=== PATIENT | female | born 1955 | race Caucasian/White ===

== ENCOUNTER 2017-02-11 17:06 | Inpatient (IN) | payer MEDICARE ==
[2017-02-11] VITALS (8 sets, daily range): BP systolic 109–128; BP diastolic 61–85; PULSE 102–111; RESP 17–24; O2SAT 93–96
[~2017-02-11] VITALS: Ht 152.4 cm; Wt 55.9 kg
--- NOTE | 2017-02-11 17:14 | ED.REPORT ---
HPI-Dyspnea / Wheezing Date of Service Feb 11, 2017 ED Provider: Dr. Paz Pt is a 61 y/o female w/ a hx of XXXXXX presenting to the ED via EMS . The patient was was going in for a f/u and had a syncopal episode and hit her head. She states she has been ill with a cough, SOB, and fever since January 29. Nursing Notes Stated Complaint: SYNCOPE Chief Complaint: Respiratory Complaints Nursing Notes Reviewed: Yes Allergies: Coded Allergies: NSAIDS (Non-Steroidal Anti-Inflamma (Verified Allergy, Severe, 02/11/17) General Time Seen by MD: 17:13 Hx Obtained From: Patient, EMS Arrived By: Ambulance Sudden in Onset?: No Past Medical History Ambulatory Status Independent Review of Systems Constitutional: Reports: Fever Respiratory: Reports: Non-productive cough Complete sys rev & neg: except as marked. Neurologic: Reports: Confusion Physical Exam Initial Vital Signs Vital Signs (First) Date Time Temp Pulse Resp B/P Pulse Ox O2 Delivery O2 Flow Rate FiO2 02/11/17 17:13 38.3 111 18 109/61 93 Room Air Initial VS: Reviewed Re-Eval/Medical Decision Counseled Regarding: Diagnosis, Lab results Discharge & Departure Impression: Primary Impression: Sepsis Sepsis type: sepsis due to unspecified organism Qualified Code: A41.9 - Sepsis, unspecified organism Discharge Condition All VS Reviewed: Yes Condition: Stable Referrals: Angeles Camara (PCP) Scribe Attestation Portions of this note were transcribed by Bubba Astorga. I, Dr. Paz personally performed the history, physical exam and medical decision-making; I reviewed and confirmed the accuracy of the information in the transcribed note. Signed by Mark Douglass, 02/11/17 - [id number] copies to: Angeles Camara Ben M MD Feb 11, 2017 17:13 BUBBA ASTORGA Feb 11, 2017 17:17
[2017-02-11 17:42] LABS: BASOPHILS % (AUTO) 0.3 % (0-3); EOSINOPHILS % (AUTO) 0 % (0-5); MONOCYTES % (AUTO) 4.7 % (4-12); Mean Corpuscular Hemoglobin 31.7 pg (27.0-35.0); Mean Corpuscular Volume 93.9 fL (81-100); NEUTROPHILS % (AUTO) 85.2 % (40-74); Platelet Count 235 bil/L (150-400)
--- NOTE | 2017-02-11 18:01 | DRSVH ---
PROCEDURE: X-RAY CHEST ONE VIEW, PORTABLE ([id number]) INDICATIONS: shortness of breath TECHNIQUE: One view of the chest was acquired. COMPARISON: [facility], CR, XR CHEST 2VW, 02/05/2017, 11:52. FINDINGS: Surgical changes and devices: None. Lungs and pleura: No pleural effusions or pneumothorax. Faint opacity is present overlying the right middle lobe. Mediastinum: Mediastinal contours appear normal. Heart size is normal. Bones and chest wall: No suspicious bony lesions. Overlying soft tissues appear unremarkable. IMPRESSION: Faint, small opacity is present overlying the right middle lobe. This could represent foc al atelectasis versus developing pneumonia. Dictated by: Libra Maravilla M.D. on 02/11/2017 at 17:58 Approved by: Libra Maravilla M.D. on 02/11/2017 at 17:59
--- NOTE | 2017-02-11 18:03 | ED.REPORT ---
HPI-Syncope Date of Service Feb 11, 2017 ED Provider: Chemo Richards MD Pt is a 61 year old female with a recent history of URI on 01/29/17 who presents to the ED via EMS complaining of a syncopal episode onset 2 hours ago. She c/o associated SOB and fever. She denies history of blood clot. The pt reports that she lost consciousness for less than 30 seconds. Pt states that her child recently had pneumonia and that she got sick shortly after. Nursing Notes Stated Complaint: SYNCOPE Chief Complaint: Respiratory Complaints Nursing Notes Reviewed: Yes Allergies: Coded Allergies: NSAIDS (Non-Steroidal Anti-Inflamma (Verified Allergy, Severe, 02/11/17) Scheduled Methadone (Methadone) 10 Mg Tab 20 MG PO MORNING Methadone (Methadone) 10 Mg Tab 10 MG PO HS Pregabalin (Lyrica) 75 Mg Capsule 75 MG PO BID General Time Seen by Provider: 18:03 Chief Complaint Lost consciousness Syncope Description: Single episode Hx Obtained From: Patient, EMS Arrived By: Ambulance Onset Occurred: 1 - 4 hours ago Symptom Duration: 1 - 15 minutes (<30 seconds) Severity: Current: No pain currently Severity: Maximum: No pain Recent Healthcare: Recent doctor visit Similar Sx Previous: No Past Medical History Past Medical History Anxiety Depression Fibromyalgia IBS URI Reports: GERD Past Surgical History Basal cell carcinoma Melanoma Reports: Hysterectomy Smoking History Former Smoker Social History Alcohol Use: Denies alcohol use Drug Use: Denies drug use Ambulatory Status Independent Review of Systems Constitutional: Reports: Fever Respiratory: Reports: Shortness of breath Neurologic: Reports: Change LOC, Syncope Complete sys rev & neg: except as marked. Physical Exam Initial Vital Signs Vital Signs (First) Date Time Temp Pulse Resp B/P Pulse Ox O2 Delivery O2 Flow Rate FiO2 02/11/17 17:13 38.3 111 18 109/61 93 Room Air 02/11/17 18:54 2 Initial VS: Reviewed Head / Eyes: Atraumatic, Normocephalic Neck: Supple, Full range of motion Abdomen / GI: Soft, Non-tender Upper Extremities: Vascular intact, Neuro intact Skin: Warm, Dry, No cyanosis Psychiatric: Mood/affect normal, Behavior normal General/Constitutional: Awake, Alert, Cooperative Distress / Hydration: Positive: Distress moderate Diaphoretic Respiratory / Chest: Atraumatic, Breath sounds = bilat Diminished breath sounds with wheeze Cardiovascular: Regular rhythm, Heart sounds NL Heart Rate / Rhythm: Positive: Tachycardia Lower Extremity / Pelvis / MS: Atraumatic, Full range of motion, Neurologic intact, Vascular intact Neurologic: Oriented X3, Speech NL Interpretation & Diagnostics Lab Results Interpretation Result Diagram: 02/11/17 1725 02/11/17 1725 Test 02/11/17 17:25 White Blood Count 7.7th/mm3 (3.8-10.1) Red Blood Count 3.63mil/mm3 (3.90-5.20) Hemoglobin 11.5g/dL (12.0-15.6) Hematocrit 34.1% (35.0-46.0) Mean Corpuscular Volume 93.9fL (81-100) Mean Corpuscular Hemoglobin 31.7pg (27.0-35.0) Mean Corpuscular Hemoglobin Concent 33.7% (32.0-37.0) Red Cell Distribution Width 11.8% (12.3-15.4) Platelet Count 235bil/L (150-400) Neutrophils (%) (Auto) 85.2% (40-74) Lymphocytes (%) (Auto) 9.7% (14-46) Monocytes (%) (Auto) 4.7% (4-12) Eosinophils (%) (Auto) 0% (0-5) Basophils (%) (Auto) 0.3% (0-3) Sodium Level 134mEq/L (134-144) Potassium Level 3.7mEq/L (3.5-5.2) Chloride Level 96mEq/L (97-108) Carbon Dioxide Level 24mmol/L (18-29) Blood Urea Nitrogen 12mg/dL (8-27) Creatinine 0.68mg/dL (0.57-1.00) Estimat Glomerular Filtration Rate 126mL/min (>59) Glucose Level 137mg/dL (60-99) Calcium Level 9.0mg/dL (8.5-10.1) Total Bilirubin 0.3mg/dL (0.0-1.2) Aspartate Amino Transf (AST/SGOT) 42U/L (0-50) Alanine Aminotransferase (ALT/SGPT) 26U/L (0-32) Alkaline Phosphatase 56U/L (25-165) C-Reactive Protein 11.5mg/dL (0.0-0.5) Pro-B-Type Natriuretic Peptide 918.0pg/mL (0-287) Total Protein 6.9g/dL (6.4-8.4) Albumin 3.8g/dL (3.4-5.0) Procalcitonin 0.18ng/mL (0.00-0.08) ECG Interpretation ECG Interpretation: Sinua tacycardia with a rate of 106. Normal ST segments. No evidence of IN. Time: 18:30 Interpreted by: ED physician X-Ray Chest Interpretation Chest Xray Interpretation: IMPRESSION: Faint, small opacity is present overlying the right middle lobe. This could represent focal atelectasis versus developing pneumonia. Dictated by: Libra Maravilla M.D. on 02/11/2017 at 17:58 View: Portable, 1 view Interpretation / Wet Read by: Interpret - Radiologist CT Head Interpretation IMPRESSION: 1. No acute intracranial process. Dictated by: Libra Maravilla M.D. on 02/11/2017 at 18:02 Study: Head CT no contrast Interpretation / Wet Read by: Interpret - Radiologist Re-Eval/Medical Decision Med Decision/Clinical Course 61-year-old female presents acutely ill with syncope, cough and diffuse wheeze. She is found to have bilateral pneumonia and significant bronchospasm. She was treated with broad-spectrum antibiotics, steroids and several DuoNeb nebs. After about 2 hours she looked and felt much better. She has been on oral antibiotics will therefore this is technically an antibiotic failure. She has been on a macrolide swell placed on a cephalosporin and admit her to the hospitalist service. Source of Hx: Old records Re-Evaluation/Progress : Time of Eval: 20:46 Re-Evaluation/Progress Note: Pt rechecked. Informed pt of plan for admission. Pt understands and agrees with plan for admission. All questions were answered. Consultation : Referral / Consult Name: Alfredo Samaniego MD Call Returned at: 20:51 Drilling Supervisor: Will see patient, Agrees with eval, Agrees with plan, Accepts admit Counseled Regarding: Diagnosis, Lab results, Need for admission Discharge & Departure Impression: Primary Impression: Pneumonia Pneumonia type: due to unspecified organism Laterality: unspecified laterality Lung location: unspecified part of lung Qualified Code: J18.9 - Pneumonia, unspecified organism Disposition: ADMITTED TO HOSPITAL Discharge Condition All VS Reviewed: Yes Condition: Stable Referrals: Angeles Camara (PCP) Crit Care Except Billable Proc Time Spent: 75-104 minutes Services Performed: Patient management by me, Time spent at bedside, Reviewing test results, Reviewing imaging, Discussing patient care, Documentation in record, Time with fam/surrogate Scribe Attestation Portions of this note were transcribed by Prema Jane. I, Dr. Richards personally performed the history, physical exam and medical decision-making; I reviewed and confirmed the accuracy of the information in the transcribed note. Signed by : Mark Padilla, 02/11/17 and 20:00. copies to: Angeles Camara Todd P DO Feb 11, 2017 18:03 Prema Jason Feb 11, 2017 18:15
--- NOTE | 2017-02-11 18:05 | DRSVH ---
PROCEDURE: CT BRAIN WITHOUT CONTRAST ([id number]) INDICATIONS: syncope TECHNIQUE: Noncontrast 4.5 mm thick angled axial sections acquired from the foramen magnum to the vertex, with c oronal reformats. COMPARISON: None. FINDINGS: Image quality: Excellent. CSF spaces: Basal cisterns are patent. No extra-axial fluid collections. Ventricles are normal in size and shape. Brain: No midline shift. No intracranial masses or hemorrhage. Garcia-white matter interface is norm al. Skull and face: Calvarium and visualized facial bones are intact, without suspicious lesions. Sinuses: Visualized sinuses and mastoids are clear. IMPRESSION: 1. No acute intracranial process. Dictated by: Libra Maravilla M.D. on 02/11/2017 at 18:02 Approved by: Libra Maravilla M.D. on 02/11/2017 at 18:03
[2017-02-11 18:08] LABS: TROPONIN T 0.022 ug/L (0.0-0.011)
[2017-02-11] MEDS ORDERED: Albuterol-Ipratropium 3 mL Inhalation Solution NEB ONE ×2 (18:15→18:30)
[2017-02-11] MEDS ORDERED: Albuterol 2.5 mg/3 mL Inhalation Solution NEB ONE ×2 (18:39→18:45)
[2017-02-11] MEDS ORDERED: MethylprednisoLONE Sodium Succinate 62.5 mg/mL 2 mL Inj IVPUSH ONE (18:45)
--- NOTE | 2017-02-11 20:23 | DRSVH ---
PROCEDURE: CT ANGIO CHEST PULMONARY EMBOLISM ([id number]) INDICATIONS: dyspnea, tachycardia, nonstemi TECHNIQUE: After the administration of intravenous contrast, 2 mm thick sections acquired from the pulmonary api jailyn to the posterior costophrenic angles. 3-dimensional maximum intensity projection (MIP) coronal a nd sagittal reformats were then acquired through the thorax. For radiation dose reduction, the follo wing was used: automated exposure control, adjustment of mA and/or kV according to patient size. COMPARISON: None. FINDINGS: Image quality: Excellent. Pulmonary arteries: Pulmonary arteries are normal in size, and demonstrate no intraluminal filling d efects to suggest central pulmonary embolism. Lungs and pleura: Scattered small patchy areas of opacity some groundglass like in nature within the lungs bilaterally. No pleural effusions or pneumothorax. Central and peripheral airways are patent. Mediastinum: Heart size is normal, without pericardial effusion. 14 mm aorticopulmonary window lymph node is present. Thoracic aorta is normal in caliber and enhancement. Esophagus is normal in calibe r, without hiatal hernia. Bones and chest wall: No suspicious bony lesions. Ribs and thoracic spine appear intact throughout. Thyroid gland is unremarkable. No axillary or supraclavicular adenopathy. Abdomen: Visualized upper abdominal solid organs appear normal in the early arterial phase of enhanc ement. IMPRESSION: 1. No pulmonary embolism. 2. Scattered small patchy areas of opacity some groundglass like in nature within the lungs bilateral ly. Finding is suspicious for infectious/inflammatory etiology. In addition, an enlarged mediastinal lymph node is also present, possibly reactive in nature. Dictated by: Libra Maravilla M.D. on 02/11/2017 at 20:18 Approved by: Libra Maravilla M.D. on 02/11/2017 at 20:21
[2017-02-11] MEDS ORDERED: cefTRIAXone Inj 2,000 MG in Dextrose 5% Minibag Plus 50 ML IV ONE (20:40)
[2017-02-11] MEDS ORDERED: 0.9% Sodium Chloride 1,000 ML IV ONE (20:55)
[2017-02-11] MEDS ORDERED: 0.9% Sodium Chloride 1,000 ML IV SCH (21:12)
[2017-02-11] MEDS ORDERED: Alum-Mag Hydrox-Simeth 30 mL Suspension PO PRN (21:15)
[2017-02-11] MEDS ORDERED: Polyethylene Glycol (PEG) 17 Gm Powder PO PRN (21:15)
[2017-02-11] MEDS ORDERED: Ondansetron 2 mg/mL 2 mL Inj IVPUSH PRN (21:15)
[2017-02-11] MEDS: 0.9% Sodium Chloride 1,000 ML IV SCH (22:34)
[2017-02-11] MEDS: cefTRIAXone Inj 2,000 MG in Dextrose 5% Minibag Plus 50 ML IV SCH (22:50)
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
[2017-02-11] MEDS ORDERED: MTH10T PO ×2 (23:04)
[2017-02-11] MEDS ORDERED: PREG75CA PO (23:09)
[2017-02-11] MEDS: Sodium Chloride LOK Flush 10 mL Syringe IVFLUSH SCH (23:11)
[2017-02-12] VITALS (12 sets, daily range): BP systolic 100–127; BP diastolic 62–79; PULSE 75–97; RESP 16–20; O2SAT 95–99
[2017-02-12 00:56] LABS: APPEARANCE,URINE CLEAR (CLEAR,HAZY); COLOR,URINE YELLOW (YELLOW); PH,URINE 6.5 (5.0-8.0)
[2017-02-12 00:57] LABS: OCCULT BLOOD,URINE NEGATIVE (NEGATIVE); UROBILINOGEN,URINE NORMAL (NORMAL)
[2017-02-12] MEDS ORDERED: HYDR-3740 PO (01:03)
[2017-02-12] MEDS ORDERED: FLUO20CA25 PO (01:03)
[2017-02-12] MEDS ORDERED: PRE20 (01:03)
[2017-02-12] MEDS ORDERED: AGM875T (01:03)
[2017-02-12] MEDS ORDERED: CYCL10TA9 PO (01:03)
[2017-02-12] MEDS ORDERED: OMEP20CA11 PO (01:03)
[2017-02-12] MEDS ORDERED: DIPH25CA6 PO (01:06)
[2017-02-12] MEDS ORDERED: lactaid PO (01:08)
[2017-02-12 05:05] LABS: BASOPHILS % (AUTO) 0.2 % (0-3); EOSINOPHILS % (AUTO) 0 % (0-5); MONOCYTES % (AUTO) 2.9 % (4-12); Mean Corpuscular Hemoglobin 31.3 pg (27.0-35.0); Mean Corpuscular Volume 90.8 fL (81-100); NEUTROPHILS % (AUTO) 88.8 % (40-74); Platelet Count 206 bil/L (150-400)
[2017-02-12] MEDS: 0.9% Sodium Chloride 1,000 ML IV SCH ×3 (05:12→21:40)
[2017-02-12] MEDS: Albuterol-Ipratropium 3 mL Inhalation Solution NEB SCH ×3 (07:55→20:20)
--- NOTE | 2017-02-12 08:01 | NUR ---
Admit/O2/Activity Pt arrived to room 2007 around 2200, vitals stable, slightly tachycardic in 100s, later in 70s. Sats mid 90s on 2L NC. Pt stated generalized pain from fibromyalgia, home methadone and lyrica ordered with good effect. Admission and med rec done by pt interview and external med list. Pt A&Ox3, pleasant and compliant w/ care. O2 titrated down to 1.5L as sats were in higher 90s. Lungs very coarse, per pt she spits up green sputum. Pt monitored on [employer], nasal PCR sent. Pt noted to be unsteady and states more recent falls and balance issues. Ines/Bed alarm set for safety, pt is call light appropriate and does well w/ SBA. No SCD machine available at this time.
[2017-02-12] MEDS: Sodium Chloride LOK Flush 10 mL Syringe IVFLUSH SCH ×3 (08:30→23:02)
--- NOTE | 2017-02-12 12:28 | PCM.PNMED ---
Subjective Date of Service Feb 12, 2017 Subjective pt still c/o SOB, coughing intermittently during interview productive cough, intermittently with thick sputum feels similar to yesterday or mildly better Exam Vital Signs Vital Sign - Last Date Time Temp Pulse Resp B/P Pulse Ox O2 Delivery O2 Flow Rate FiO2 02/12/17 11:34 36.5 83 18 115/79 98 Nasal Cannula 1.50 Intake and Output 02/11/17 02/11/17 02/12/17 Cumulative From/Thru 15:00 23:00 07:00 02/11/17 17:13 - 02/12/17 06:54 Intake Total 1000 ml 1177 ml 2177 ml Output Total 1200 ml 1200 ml Balance 1000 ml -23 ml 977 ml Intake Oral 300 ml 300 ml IV Total 1000 ml 877 ml 1877 ml Output Urine Total 1200 ml 1200 ml # Voids 4 4 Exam NAD, comfortably laying down on the bed no JVD, MMM, no LAD RRR, nl s1, s2 no mrg coarse BS crackles on Rt >Lt. no wheezing S,ND,NT,normoactive BS+ warm, no edema, pulses 2/2 IVs and Medications Medications Reviewed: Medications were reviewed in detail Lab and Diagnostics Result Diagram: 02/12/17 0502 02/12/17 0502 X-Rays, CTs and MRIs ECG Interpretation: Sinua tacycardia with a rate of 106. Normal ST segments. No evidence of HI. Time: 18:30 Interpreted by: ED physician X-Ray Chest Interpretation Chest Xray Interpretation: IMPRESSION: Faint, small opacity is present overlying the right middle lobe. This could represent focal atelectasis versus developing pneumonia. Dictated by: Libra Maravilla M.D. on 02/11/2017 at 17:58 View: Portable, 1 view Interpretation / Wet Read by: Interpret - Radiologist CT Head Interpretation IMPRESSION: 1. No acute intracranial process. Dictated by: Libra Maravilla M.D. on 02/11/2017 at 18:02 Study: Head CT no contrast Interpretation / Wet Read by: Interpret - Radiologist PROCEDURE: CT ANGIO CHEST PULMONARY EMBOLISM ([id number]) IMPRESSION: 1. No pulmonary embolism. 2. Scattered small patchy areas of opacity some groundglass like in nature within the lungs bilaterally. Finding is suspicious for infectious/inflammatory etiology. In addition, an enlarged mediastinal lymph node is also present, possibly reactive in nature. Assessment & Plan 61-year-old female with history of fibromyalgia and chronic pain on Methadone who presented to the ED by EMS after a witnessed syncopal episode at her doctor' s office earlier today. acute, active Sepsis, POA, She meets criteria with her temperature, tachycardia, tachypnea, and lungs source of infection. 1 L of IV normal saline given in the ED. continued IV NS at 125mls/hr -sepsis resolving, HD more stable, less tachycardic today -monitor VS closely Likely Community Acquired Pneumonia, POA, Patient failed outpt therapy with Azithromycin.She continues to have chills, prod cough, and increasing SOB. B/l consolidation noted on CT chest. Blood cultures drawn and IV Rocephin started in the ED on 02/11 -continue IV Rocephin and PO Azithromycin for 2 more days since pt already took 3 days of it. -infectious w/u: so far ngtd- Viral Resp PCR panel pending, BCX, sputum cx -Duoneb TIDwa for SOB. Encourage acapella usage -Tessalon perles prn cough Acute Hypoxic Respiratory Failure, POA, due to PNA, pt required 2L of O2 by oxymask to maintain saturations >95%. Likely secondary to infection, possibly inflammatory process -pt maintained her airway, continue O2 supplement as needed target>95% chronic, stable, resolved Syncopal Episode, POA, Likely due to hypoxia, dehydration, and infection, Brain CT benign, monitor further sx for now, no further w/u Elevated Troponins, POA, Trop of 0.022 on admission, likely due to hypoxia and tachycardia, EKG reassuring, normalized Fibromyalgia, POA, resumed home methadone, not in pain Chronic Pain Disorder, POA Currently on methadone therapy. CODE STATUS: Full resuscitation dispo: likely d/c home in 1-2days VTE Mechanical Devices: Intermittant Pneumatic CD Resuscitation Status: CPR: Attempt Resuscitation Time spent 35min Arpita Jane MD Feb 12, 2017 12:28
--- NOTE | 2017-02-12 15:15 | NUR ---
spiritual care: pt request conversational visit. pt shared medical updates, explained feeling "better" and is agreeable for visit from caring highway design engineer. Pt said she has enjoyed reading scripture lately and would find selective passages comforting. written resources provided.
--- NOTE | 2017-02-12 18:13 | NUR ---
IV Therapy, Family 0945 - Discussed her care with Dr. Jane and the rest of the multidisciplinary care team during morning rounds. 1030 - Her IV in her left AC had become infiltrated and was causing pain. Her fluids were stopped and a new IV was attempted three times by two different nurse. Unable to place one successfully. Zina from IV Therapy was called and she came and placed an IV. Her IV fluids were continued. 1227 - Returned a call to her [id number] (with the patient's permission) and gave her an update on her care. She was appreciative. 1635 - Her son and [id number] arrived and were given more updates. Gave them her [id number] Tylenol to take home. Care continues.
--- NOTE | 2017-02-12 19:48 | NUR ---
IV fluids Pt has NS running at 125/hr and taking PO fluids well. Noted some crackles to bases. on continuous pulse oximeter and sats are in the mid-90's on 1 liters nasal cannula. MD notified and orders to decreased IV fluids.
[2017-02-12] MEDS: cefTRIAXone Inj 2,000 MG in Dextrose 5% Minibag Plus 50 ML IV SCH (23:01)
[2017-02-13] VITALS (11 sets, daily range): BP systolic 107–135; BP diastolic 51–86; PULSE 86–107; RESP 16–22; O2SAT 93–98
[2017-02-13] MEDS: Albuterol-Ipratropium 3 mL Inhalation Solution NEB SCH ×5 (00:12→20:53)
[2017-02-13 04:59] LABS: BASOPHILS % (AUTO) 0.2 % (0-3); EOSINOPHILS % (AUTO) 0.9 % (0-5); MONOCYTES % (AUTO) 7.1 % (4-12); Mean Corpuscular Hemoglobin 30.6 pg (27.0-35.0); Mean Corpuscular Volume 94.2 fL (81-100); NEUTROPHILS % (AUTO) 68.6 % (40-74); Platelet Count 193 bil/L (150-400)
[2017-02-13 05:24] LABS: Magnesium 1.9 mg/dL (1.6-2.6); Phosphorus 2.4 mg/dL (2.5-4.9)
[2017-02-13] MEDS: Sodium Chloride LOK Flush 10 mL Syringe IVFLUSH SCH ×2 (08:27→16:30)
--- NOTE | 2017-02-13 08:29 | NUR ---
Cough Pt states phlegm is not as thick, but still light green. Pt states she is starting to feel better. Encouraged sitting up in bed and using acapella. Care continues.
[2017-02-13] MEDS ORDERED: Potassium Chloride 20 mEq SR Tablet PO ONE (08:40)
--- NOTE | 2017-02-13 08:44 | PCM.PNMED ---
Subjective Date of Service Feb 13, 2017 Subjective She continues to have a productive cough. Some discolored green sputum. No fevers or chills. No chest pain. She is very wheezy and has a cough with deep inspiration. No abdominal pain, nausea or diarrhea. No overnight events. Exam Vital Signs Vital Sign - Last Date Time Temp Pulse Resp B/P Pulse Ox O2 Delivery O2 Flow Rate FiO2 02/13/17 07:45 36.5 97 20 118/81 97 Nasal Cannula 1.50 Intake and Output 02/12/17 02/12/17 02/13/17 Cumulative From/Thru 15:00 23:00 07:00 02/11/17 17:13 - 02/13/17 06:17 Intake Total 2417 ml 1554 ml 6148 ml Output Total 1700 ml 1550 ml 4450 ml Balance 717 ml 4 ml 1698 ml Intake Oral 1600 ml 500 ml 2400 ml IV Total 817 ml 1054 ml 3748 ml Output Urine Total 1700 ml 1550 ml 4450 ml # Voids 4 Exam Alert and oriented -3, no distress. Fluent speech Anicteric sclera. Lungs are normal for diffuse inspiratory and expiratory wheezing and basilar rales. Heart is regular without murmur gallop or rub Abdomen soft nontender, flat Extremities are free of edema. Skin is free of rash or lesions. IVs and Medications Medications Reviewed: Medications were reviewed in detail Lab and Diagnostics Result Diagram: 02/13/17 0430 02/13/17 0430 X-Rays, CTs and MRIs ECG Interpretation: Sinua tacycardia with a rate of 106. Normal ST segments. No evidence of HI. Time: 18:30 Interpreted by: ED physician X-Ray Chest Interpretation Chest Xray Interpretation: IMPRESSION: Faint, small opacity is present overlying the right middle lobe. This could represent focal atelectasis versus developing pneumonia. Dictated by: Libra Maravilla M.D. on 02/11/2017 at 17:58 View: Portable, 1 view Interpretation / Wet Read by: Interpret - Radiologist CT Head Interpretation IMPRESSION: 1. No acute intracranial process. Dictated by: Libra Maravilla M.D. on 02/11/2017 at 18:02 Study: Head CT no contrast Interpretation / Wet Read by: Interpret - Radiologist PROCEDURE: CT ANGIO CHEST PULMONARY EMBOLISM ([id number]) IMPRESSION: 1. No pulmonary embolism. 2. Scattered small patchy areas of opacity some groundglass like in nature within the lungs bilaterally. Finding is suspicious for infectious/inflammatory etiology. In addition, an enlarged mediastinal lymph node is also present, possibly reactive in nature. Assessment & Plan 61-year-old female with history of fibromyalgia and chronic pain on Methadone who presented to the ED by EMS after a witnessed syncopal episode at her doctor' s office earlier today. #. Sepsis, POA and improved, She meets criteria with her temperature, tachycardia, tachypnea, and lungs source of infection. 1 L of IV normal saline given in the ED. continued IV NS at 125mls/hr -sepsis resolving, HD more stable, less tachycardic today -monitor VS closely #. Community Acquired Pneumonia, POA and improving. Patient failed outpt therapy with Azithromycin.She continues to have chills, prod cough, and increasing SOB. B/l consolidation noted on CT chest. Blood cultures drawn and IV Rocephin started in the ED on 02/11 -continue IV Rocephin and PO Azithromycin for 2 more days since pt already took 3 days of it. -infectious w/u: so far ngtd- Viral Resp PCR panel pending, BCX, sputum cx -Duoneb TIDwa for SOB. Encourage acapella usage -Tessalon perles prn cough #. Acute Hypoxic Respiratory Failure, POA and improving, due to PNA, pt required 2L of O2 by oxymask to maintain saturations >95%. Likely secondary to infection, possibly inflammatory process -pt maintained her airway, continue O2 supplement as needed target>95% #. Reactive airways disease, POA and active. She denies a history of COPD or asthma. Continue bronchodilators and consider corticosteroids if she fails to improve. #. Syncopal Episode, POA and resolved, Likely due to hypoxia, dehydration, and infection, Brain CT benign, monitor further sx for now, no further w/u #. Elevated Troponins, POA and resolved, Trop of 0.022 on admission, likely due to hypoxia and tachycardia, EKG reassuring, normalized #. Fibromyalgia, POA and active, resumed home methadone, not in pain #. Chronic Pain Disorder and continuous opiate dependence, POA and active Currently on methadone therapy. CODE STATUS: Full resuscitation dispo: likely d/c home in 1days VTE Mechanical Devices: Intermittant Pneumatic CD Resuscitation Status: CPR: Attempt Resuscitation Remington Hopkins MD Feb 13, 2017 08:44
[2017-02-13] MEDS: 0.9% Sodium Chloride 1,000 ML IV SCH ×2 (11:32→22:59)
--- NOTE | 2017-02-13 13:22 | NUR ---
spiritual care: following Visited with pt this morning who was grateful to see the rest room attendant. Pt requested a Bible and this rest room attendant provided one for her. Blessed her before leaving the room. Spiritual care will continue to follow as needed.
--- NOTE | 2017-02-13 16:05 | NUR ---
Social Work Note: Initial Assessment/Multidisciplinary Rounds Data& Assessment: EMR reviewed. Pt was discussed in AM rounds today, Per MD pt is not medically ready for discharge. Pt is on 3L of oxygen at this time and normally does not require any home oxygen. Melissa Granados is a 61 year old female admitted on 02/11/2017 for pneumonia and respiratory distress. Pt has Medicare insurance coverage. Pt lives in the [facility] in [place] on the 3rd floor and is independent at baseline with all ADL's with no DME needs. Pt drives. Pt does not have LTC insurance or VA benefits. Pt does not have HH or SNF hx. Pt provided DPOA/AD paperwork. Pt goes to the pain clinic for methadone. Pt daughter will be transporting pt home when medically ready. Pt denies any other needs at this time. No MD orders identified at this time. Pt independent with self care during this hospitalization so far, MD has not identified any concerns with pt capacity for self care. SW to continue to follow. Plan: Anticipated discharge home via POV when medically ready. Pt denies any other needs at this time. No MD orders identified at this time. SW to continue to follow. SUNG Farmer Addendum: 02/13/17 at 1609 by LE CANELA Amended: Links added.
--- NOTE | 2017-02-13 18:27 | NUR ---
Cough Pt continues to use breathing apparatus. States phlegm is getting thinner. Pt states feeling better this shift. Care continues.
[2017-02-13] MEDS: cefTRIAXone Inj 2,000 MG in Dextrose 5% Minibag Plus 50 ML IV SCH (21:57)
[2017-02-14] VITALS (9 sets, daily range): BP systolic 119–138; BP diastolic 77–88; PULSE 70–109; RESP 17–20; O2SAT 92–99
[2017-02-14] MEDS: Sodium Chloride LOK Flush 10 mL Syringe IVFLUSH SCH ×3 (01:00→22:28)
--- NOTE | 2017-02-14 06:40 | NUR ---
Respiratory Pt continues to have congested cough, wheezing and course sounds throughout. Post one hour after nebulizer tx, pt still experiencing little relief.
[2017-02-14] MEDS: Albuterol-Ipratropium 3 mL Inhalation Solution NEB SCH ×3 (08:17→16:56)
--- NOTE | 2017-02-14 11:54 | NUR ---
Respiratory/Ambulation Pt states she is breathing better, pt states she is diligent about using acapella. Repositioned pt HOB to 40 degrees to facilitate coughing. Pt states phlegm is getting derrick man colored and thinner. Pt only gets out of bed to use BSC. Pt states she is too weak to walk. Care continues.
[2017-02-14] MEDS: predniSONE 20 mg Tablet PO SCH (12:32)
[2017-02-14] MEDS: 0.9% Sodium Chloride 1,000 ML IV SCH (12:33)
[2017-02-14] MEDS ORDERED: POLY17PO6 PO (14:16)
--- NOTE | 2017-02-14 15:08 | PCM.PNMED ---
Subjective Date of Service Feb 14, 2017 Subjective She feels better today. She still has a nonproductive cough and notes her breathing is considerably improved. She still is having audible wheezing. She denies a history of known COPD or asthma. No fevers or chills. No chest pain or palpitations. No nausea. No follow-up for last 2 days. Some anorexia. Overnight events reviewed none significant. Exam Vital Signs Vital Sign - Last Date Time Temp Pulse Resp B/P Pulse Ox O2 Delivery O2 Flow Rate FiO2 02/14/17 12:56 36.9 108 20 128/87 93 02/14/17 12:35 Room Air 02/14/17 09:15 1.50 Intake and Output 02/13/17 02/13/17 02/14/17 Cumulative From/Thru 15:00 23:00 07:00 02/11/17 17:13 - 02/14/17 06:56 Intake Total 1880 ml 2129 ml 77311 ml Output Total 1500 ml 1700 ml 7650 ml Balance 380 ml 429 ml 2507 ml Intake Oral 1880 ml 200 ml 4480 ml IV Total 1929 ml 5677 ml Output Urine Total 1500 ml 1700 ml 7650 ml # Voids 4 Exam Alert and oriented -3, no distress. Fluent speech Anicteric sclera. Lungs are immobile for diffuse expiratory and inspiratory wheezing. With normal rate and effort Heart is regular without murmur gallop or rub Abdomen soft nontender, flat Extremities are free of edema. Skin is free of rash or lesions. IVs and Medications Medications Reviewed: Medications were reviewed in detail Lab and Diagnostics Result Diagram: 02/13/17 0430 02/14/17 1109 X-Rays, CTs and MRIs ECG Interpretation: Sinua tacycardia with a rate of 106. Normal ST segments. No evidence of OK. Time: 18:30 Interpreted by: ED physician X-Ray Chest Interpretation Chest Xray Interpretation: IMPRESSION: Faint, small opacity is present overlying the right middle lobe. This could represent focal atelectasis versus developing pneumonia. Dictated by: Libra Maravilla M.D. on 02/11/2017 at 17:58 View: Portable, 1 view Interpretation / Wet Read by: Interpret - Radiologist CT Head Interpretation IMPRESSION: 1. No acute intracranial process. Dictated by: Libra Maravilla M.D. on 02/11/2017 at 18:02 Study: Head CT no contrast Interpretation / Wet Read by: Interpret - Radiologist PROCEDURE: CT ANGIO CHEST PULMONARY EMBOLISM ([id number]) IMPRESSION: 1. No pulmonary embolism. 2. Scattered small patchy areas of opacity some groundglass like in nature within the lungs bilaterally. Finding is suspicious for infectious/inflammatory etiology. In addition, an enlarged mediastinal lymph node is also present, possibly reactive in nature. Assessment & Plan 61-year-old female with history of fibromyalgia and chronic pain on Methadone who presented to the ED by EMS after a witnessed syncopal episode at her doctor' s office earlier today. #. Sepsis, POA and resolved, \\ She met criteria with her temperature, tachycardia, tachypnea, and lungs source of infection. 1 L of IV normal saline given in the ED. continued IV NS at 125mls/hr -sepsis resolving, HD more stable, less tachycardic today current course of treatment with antibiotics #. Community Acquired Pneumonia, POA and improving. Patient failed outpt therapy with Azithromycin.She continues to have chills, prod cough, and increasing SOB. B/l consolidation noted on CT chest. Blood cultures drawn and IV Rocephin started in the ED on 02/11 -continue IV Rocephin and PO Azithromycin for 2 more days since pt already took 3 days of it. -infectious w/u: so far ngtd- Viral Resp PCR panel pending, BCX, sputum cx -Duoneb TIDwa for SOB. Encourage acapella usage -Tessalon perles prn cough Unchanged medical plan. #. Acute Hypoxic Respiratory Failure, POA and improving, due to PNA, pt required 2L of O2 by oxymask to maintain saturations >95%. Likely secondary to infection, possibly inflammatory process -pt maintained her airway, continue O2 supplement as needed target>95% No change to medical treatment. #. Reactive airways disease, POA and active. She denies a history of COPD or asthma. Continue bronchodilators . We will start prednisone at 40 mg daily. #. Syncopal Episode, POA and resolved, Likely due to hypoxia, dehydration, and infection, Brain CT benign, monitor further sx for now, no further w/u #. Elevated Troponins, POA and resolved, Trop of 0.022 on admission, likely due to hypoxia and tachycardia, EKG reassuring, normalized #. Fibromyalgia, POA and active, resumed home methadone, not in pain #. Chronic Pain Disorder and continuous opiate dependence, POA and active Currently on methadone therapy. CODE STATUS: Full resuscitation dispo: Possible discharge home tomorrow, Saturday. VTE Mechanical Devices: Intermittant Pneumatic CD Resuscitation Status: CPR: Attempt Resuscitation Remington Hopkins MD Feb 14, 2017 15:08
--- NOTE | 2017-02-14 16:08 | NUR ---
Social Work: Multidisciplinary Rounds Pt discussed in am rounds; sw status remains unchanged. Anticipate discharge home when medically stable. CERTIFIED OPHTHALMIC MEDICAL TECHNICIAN to continue to follow to assess for further d/c needs. Melonie Vaughn MSW
--- NOTE | 2017-02-14 16:51 | NUR ---
Transferred Pt transferred to [facility] room 3005, report given to Michelle APODACA. Pt transferred via wheelchair. NC 1.5 L. Pt left with all personal belongings and chart. Care continues.
--- NOTE | 2017-02-14 17:48 | NUR ---
Arrived to [facility]: Patient arrived to [facility] from [facility] at 1600. Patient was oriented to her new room care givers and call light. Patient is alert and oriented x3 . She was given Tylenol for general pain and Miralax at her request (she hasn't had BM since February 10 . ) Patient ordered some dinner. Encouraged her to use her call light to ask for assistance.
[2017-02-14] MEDS: cefTRIAXone Inj 2,000 MG in Dextrose 5% Minibag Plus 50 ML IV SCH (22:35)
[2017-02-15] MEDS: Sodium Chloride LOK Flush 10 mL Syringe IVFLUSH SCH ×2 (00:30→09:57)
[2017-02-15] MEDS: 0.9% Sodium Chloride 1,000 ML IV SCH (03:00)
[2017-02-15 06:04] LABS: Mean Corpuscular Hemoglobin 30.7 pg (27.0-35.0); Mean Corpuscular Volume 93.8 fL (81-100)
[2017-02-15 06:32] VITALS: BP 139/91; PULSE 85; RESP 16; O2SAT 95
--- NOTE | 2017-02-15 06:44 | NUR ---
Stable overnight Pt c/o some headache 5/10 and mild generalized pain r/o fibramyalgia, scheduled pain med given at HS, Tylenol given per pt requests. Pain improved, pt sleeping most of night, no additional pain med needed when offered. Pt states SOB improved a lot, SPO2 around 94, 95% on RA, occasional nonproductive cough, declines Tessalon ang when offered, Pt used Acapella when encouraged. Still some crackles at bilateral upper lobes and left posterior LL, occasional wheezes at left posterior lung.
[2017-02-15 07:18] VITALS: PULSE 83; RESP 20; O2SAT 96
[2017-02-15] MEDS: Albuterol-Ipratropium 3 mL Inhalation Solution NEB SCH (07:18)
[2017-02-15] MEDS: predniSONE 20 mg Tablet PO SCH (09:56)
--- NOTE | 2017-02-15 10:12 | NUR ---
Social Work: Discharge / Multidisciplinary Rounds Data: Pt is on day 4 of hospitalization. EMR reviewed, pt discussed in rounds. MD states pt ready for d/c today. D/C orders are in. Pt requested information on her hospital bill and if she may be charged, MOLDING TECHNICIAN stated that pt does not have a supplement and may receive a bill for part of her stay, as we cannot guarantee she will not. She has been inpt for the entire stay, so her insurance will likely cover a large majority. Pt also requesting information on a walker. Pt has not worked with PT this admission. MOLDING TECHNICIAN spoke with MD regarding if pt has a medical need for a walker and if they would like to write a prescription. MD states he is writing prescription and requested MOLDING TECHNICIAN set this up for pt. No d/c planning needs at this time. MOLDING TECHNICIAN will continue to follow if needs arise. Assessment: Pt who is independent at baseline. Plan: Pt will d/c home today via POV with family. MD to write script for walker and MOLDING TECHNICIAN to assist pt in obtaining this. MOLDING TECHNICIAN will continue to follow. SUNG Richardson Addendum: 02/15/17 at 1308 by AYAAN CONLEY MOLDING TECHNICIAN attempted to speak with pt regarding walker, pt already discharged home via POV with her daughter. RN states she will call to let pt and daughter know that a prescription for her walker is at the hospital if they would like to have it. SUNG Richardson
--- NOTE | 2017-02-15 10:14 | PCM.DIMED ---
Discharge Instructions Date of Service Feb 15, 2017 Dates of Hospitalization Feb 11, 2017 at 21:17 Discharge Diagnosis Discharge Diagnosis #. Sepsis, POA and resolved, #. Community Acquired Pneumonia, POA and improving. Patient failed outpt therapy #. Acute Hypoxic Respiratory Failure, POA and improving, due to PNA, #. Reactive airways disease, POA and active. #. Syncopal Episode, POA and resolved #. Fibromyalgia, POA and active, #. Chronic Pain Disorder Diet Discharge Diet: Low fat, Low Sodium Activity Discharge Activity: Limited until seen by PCP Call your provider Call your provider for: Fever or Chills, Shortness of breath, Bleeding, Chest pain, Vomitting, Excessive diarrhea, Weakness (unilateral) Patient Instructions Patient Instructions You were hospitalized due to pneumonia. Please continue Augmentin for 4 more days. He also had reactive airway disease. Please take albuterol as needed for wheezing and prednisone for 2 more days Follow-up Provider: Angeles Camara Follow-up with PCP in: 1 week Terry Kitchen MD Feb 15, 2017 10:14
[2017-02-15] MEDS ORDERED: ALBU8.5H2 INHALATION (10:21)
[2017-02-15] MEDS ORDERED: PRE20 PO (10:21)
[2017-02-15] MEDS ORDERED: AGM875T ORAL (10:21)
[2017-02-15] MEDS ORDERED: WALK1EAC55 MC (10:23)
--- NOTE | 2017-02-15 11:10 | PCM.DC.MED ---
Discharge Summary Date of Service Feb 15, 2017 Dates of Hospitalization Date of Hospital Admission Feb 11, 2017 at 21:17 Date of Discharge: Feb 15, 2017 Providers: Admitting Physician: Alfredo Samaniego MD Primary Care Physician: Angeles Camara Attending Physician: Terry Kitchen MD Diagnosis at Time of Discharge Diagnosis at Time of Discharge #. Sepsis, POA and resolved, #. Community Acquired Pneumonia, POA and improving. Patient failed outpt therapy #. Acute Hypoxic Respiratory Failure, POA and improving, due to PNA, #. Reactive airways disease, POA and active. #. Syncopal Episode, POA and resolved #. Fibromyalgia, POA and active, #. Chronic Pain Disorder Procedures XRay, CTs & MRIs X-Ray Chest Interpretation Chest Xray Interpretation: IMPRESSION: Faint, small opacity is present overlying the right middle lobe. This could represent focal atelectasis versus developing pneumonia. Dictated by: Libra Maravilla M.D. on 02/11/2017 at 17:58 View: Portable, 1 view Interpretation / Wet Read by: Interpret - Radiologist CT Head Interpretation IMPRESSION: 1. No acute intracranial process. Dictated by: Libra Maravilla M.D. on 02/11/2017 at 18:02 Study: Head CT no contrast Interpretation / Wet Read by: Interpret - Radiologist PROCEDURE: CT ANGIO CHEST PULMONARY EMBOLISM ([id number]) IMPRESSION: 1. No pulmonary embolism. 2. Scattered small patchy areas of opacity some groundglass like in nature within the lungs bilaterally. Finding is suspicious for infectious/inflammatory etiology. In addition, an enlarged mediastinal lymph node is also present, possibly reactive in nature. ECG 12 Lead ECG Interpretation: Sinua tacycardia with a rate of 106. Normal ST segments. No evidence of ME. Time: 18:30 Interpreted by: ED physician Brief History per HPI 61-year-old female with history of fibromyalgia and chronic pain on Methadone who presented to the ED by EMS after a witnessed syncopal episode at her doctor' s office earlier today. Per patient, she was at her doctor's office for follow- up when she became acutely weak and had a syncopal episode. She does not remember the events very clearly, but was noted to hit her head. She did have post-syncope confusion, but no reported seizure-like activity or other stroke- like symptoms. Patient reports that she went to the doctor's office about 1 week ago for an increasing productive cough and myalgia. She reports she did have some exposure to a grandchild who was sick with possible pneumonia. She was prescribed a z-leonard by her PCP when her symptoms were not improving on . She reports that despite taking the Z-leonard, her symptoms continued to progress. She started developing chills, increasing SOB, pleuritic CP, and lightheadedness. She has had some decreased appetite and PO intake also. She believes her syncopal episode may be due to being so sick and dehydrated. She denies any recent travels and did not receive her Flu and Pneumonia shot this year. In the ED, she was noted to be febrile with temperature of 38.3, tachycardic at 111, normotensive, and saturating about 93% on room air Her EKG shows sinus tachycardia with no acute ST changes She did have a chest x-ray which showed a possible right middle lobe consolidation. Subsequent CT angiography of her chest did not show PE but did show bilateral consolidations consistent with inflammation/infection. She also had a brain CT due to through her head injury which did not show any acute injury Her labs pertinent for white count of 7.7 with 85% neutrophils. Her lactic acid was 1.1, troponin of 0.022 She received IV ceftriaxone in the ED for presumptive community-acquired pneumonia Hospital Course 61-year-old female with history of fibromyalgia and chronic pain on Methadone who presented to the ED by EMS after a witnessed syncopal episode at her doctor' s office earlier today. #. Sepsis, POA and resolved, She met criteria with her temperature, tachycardia, tachypnea, and lungs source of infection. Treated with 1 L of IV normal saline given in the ED. continued IV NS at 125mls/hr -sepsis resolved, HD more stable, Discharged home on oral antibiotics Augmentin #. Community Acquired Pneumonia, POA and improving. Patient failed outpt therapy with Azithromycin.She continues to have chills, prod cough, and increasing SOB. B/l consolidation noted on CT chest. Blood cultures drawn and IV Rocephin started in the ED on 02/11 -Treated with IV Rocephin and PO Azithromycin -infectious w/u: so far ngtd- Viral Resp PCR panel pending, BCX, sputum cx -Duoneb TIDwa for SOB. Encourage acapella usage -Tessalon nirmalaes prn cough Discharged home on oral antibiotics Augmentin #. Acute Hypoxic Respiratory Failure, POA resolved, due to PNA, pt required 2L of O2 by oxymask to maintain saturations >95%. Likely secondary to infection, possibly inflammatory process Patient ambulated on hallway on room air. No desaturation. No need for oxygen #. Reactive airways disease, POA and active. She denies a history of COPD or asthma. Continue bronchodilators . started prednisone at 40 mg daily. Continue for 2 more days outpatient Albuterol when necessary prescribed #. Syncopal Episode, POA and resolved, Likely due to hypoxia, dehydration, and infection, Brain CT benign, , no further w/u #. Elevated Troponins, POA and resolved, Trop of 0.022 on admission, likely due to hypoxia and tachycardia, EKG reassuring, normalized #. Fibromyalgia, POA and active, resumed home methadone, not in pain #. Chronic Pain Disorder and continuous opiate dependence, POA and active Currently on methadone therapy. # Deconditioned and unstable gait -walker prescribed dispo: Discharged home Condition on discharge stable Exam Vital Signs (Last) Date Time Temp Pulse Resp B/P Pulse Ox O2 Delivery O2 Flow Rate FiO2 02/15/17 09:00 Supplement Oxygen 02/15/17 07:18 83 20 96 02/15/17 06:32 36.3 139/91 02/14/17 16:55 1.00 Exam Alert and oriented -3, no distress. Fluent speech Anicteric sclera. Lungs are immobile for diffuse expiratory and inspiratory wheezing. With normal rate and effort Heart is regular without murmur gallop or rub Abdomen soft nontender, flat Extremities are free of edema. Skin is free of rash or lesions. Test 02/11/17 17:25 02/11/17 23:17 02/11/17 23:50 02/11/17 23:57 C-Reactive Protein 11.5mg/dL (0.0-0.5) Pro-B-Type Natriuretic Peptide 918.0pg/mL (0-287) Lactic Acid Level 1.3mmol/L (0.4-2.0) Troponin T 0.010ug/L (0.0-0.011) Urine Legionella pneumophilia Ag Negative (Negative) Urine Color Yellow (YELLOW) Urine Appearance Clear (CLEAR,HAZY) Urine pH 6.5 (5.0-8.0) Urine Specific [place] 1.032 (1.003-1.035) Urine Protein Negativemg/dL (NEG,TRACE) Urine Glucose (UA) Negativemg/dL (NEGATIVE) Urine Ketones Tracemg/dL (NEGATIVE) Urine Occult Blood Negative (NEGATIVE) Urine Nitrite Negative (NEGATIVE) Urine Bilirubin Negative (NEGATIVE) Urine Urobilinogen Normalmg/dL (NORMAL) Urine Leukocyte Esterase Negative (NEGATIVE) Urine RBC 0-2/hpf (0-2) Urine WBC 0-5/hpf (0-5) Urine Epithelial Cells Occasional/hpf (NONE-MOD) Urine Crystals None seen (NONE SEEN) Urine Bacteria None/hpf (NONE-FEW) Urine Hyaline Casts None/lpf (NONE) Urine Granular Casts None seen (NONE SEEN) Urine Waxy Casts None seen (NONE SEEN) Urine Red Blood Cell Casts None seen (NONE SEEN) Urine White Blood Cell Casts None seen (NONE SEEN) Urine Mucus None seen (None Seen) Urine Trichomonas None seen (NONE SEEN) Urine Yeast None (NONE SEEN) Urinalysis Comment None Urine Culture Reflexed Not indicated Test 02/12/17 13:14 02/13/17 04:30 02/15/17 05:37 Hold Urine Received (Received) Neutrophils (%) (Auto) 68.6% (40-74) Lymphocytes (%) (Auto) 23.0% (14-46) Monocytes (%) (Auto) 7.1% (4-12) Eosinophils (%) (Auto) 0.9% (0-5) Basophils (%) (Auto) 0.2% (0-3) Phosphorus Level 2.4mg/dL (2.5-4.9) Magnesium Level 1.9mg/dL (1.6-2.6) Total Bilirubin 0.2mg/dL (0.0-1.2) Aspartate Amino Transf (AST/SGOT) 28U/L (0-50) Alanine Aminotransferase (ALT/SGPT) 22U/L (0-32) Alkaline Phosphatase 47U/L (25-165) Total Protein 5.5g/dL (6.4-8.4) Albumin 3.0g/dL (3.4-5.0) Procalcitonin 0.17ng/mL (0.00-0.08) White Blood Count 6.2th/mm3 (3.8-10.1) Red Blood Count 3.71mil/mm3 (3.90-5.20) Hemoglobin 11.4g/dL (12.0-15.6) Hematocrit 34.8% (35.0-46.0) Mean Corpuscular Volume 93.8fL (81-100) Mean Corpuscular Hemoglobin 30.7pg (27.0-35.0) Mean Corpuscular Hemoglobin Concent 32.8% (32.0-37.0) Red Cell Distribution Width 11.8% (12.3-15.4) Platelet Count 316bil/L (150-400) Sodium Level 142mEq/L (134-144) Potassium Level 4.6mEq/L (3.5-5.2) Chloride Level 105mEq/L (97-108) Carbon Dioxide Level 27mmol/L (18-29) Blood Urea Nitrogen 7mg/dL (8-27) Creatinine 0.51mg/dL (0.57-1.00) Estimat Glomerular Filtration Rate 176mL/min (>59) Glucose Level 107mg/dL (60-99) Calcium Level 9.2mg/dL (8.5-10.1) Discharge Medications Discharge Medications Albuterol HFA (Proair HFA) 8.5 Gm Hfa.aer.ad 2 PUFFS INHALATION Q4H Prescribed by: TERRY KITCHEN MD Amoxicillin/Clav K 875-125 mg (Amoxicillin/Clav K 875-125 mg) 875 Mg Tab 1 TAB ORAL BID Prescribed by: TERRY KITCHEN MD Fluoxetine (Fluoxetine) 20 Mg Capsule 60 MG PO DAILY (Reported) Methadone (Methadone) 10 Mg Tab 20 MG PO TID (Reported) Omeprazole (Omeprazole) 20 Mg Capsule.dr 40 MG PO DAILY (Reported) Polyethylene Glycol 3350 (Miralax) 17 Gm Powd.pack 17 GM PO DAILY (Reported) Prednisone (PredniSONE) 20 Mg Tablet 40 MG PO DAILY Prescribed by: TERRY KITCHEN MD As needed Hydrocodone-Acetaminophen 10-325 mg (Hydrocodone-Acetaminophen 10-325 mg) 1 Each Tablet 1-2 TABLET PO PRN For Pain (Reported) diphenhydrAMINE HCl (Benadryl) 25 Mg Capsule 25 MG PO DAILY PRN PRN For Congestion (Reported) Durable Medical Equipment Walker (Ultra-Light Rollator) 1 Each Each 1 EACH [facility] (DME) Prescribed by: TERRY KITCHEN MD Followup Plan Disposition: home Discharge Diet: Low fat, Low Sodium Discharge Activity: Limited until seen by PCP Patient Instructions You were hospitalized due to pneumonia. Please continue Augmentin for 4 more days. He also had reactive airway disease. Please take albuterol as needed for wheezing and prednisone for 2 more days Follow-up Provider: Angeles Camara Follow-up with PCP in: 1 week Time spent 35 minutes copies to: Angeles Camara Melaku MD Feb 15, 2017 11:10
--- NOTE | 2017-02-15 13:12 | NUR ---
Discharge Nursing Note: Patient was discharged to home at 1300. Her IV was removed intact. All of her discharge information was reviewed with her and her questions were answered to her satisfaction. Patient was escorted to the hospital lobby by nursing staff member and she was driven to home by her daughter in law. Patient did not want the script for the walker and gave permission to dispose of the script.
== END 2017-02-15 12:59 | disposition home or self-care (01) | DRG 871 ==
LOC: SED 17:06 → PCC 21:17 → MPC 02-14 15:23
PROVIDERS: ADMIT Hospitalist; ATTEND Hospitalist
DX: A41.9 Sepsis, unspecified organism (principal); J96.01 Acute respiratory failure with hypoxia; J18.9 Pneumonia, unspecified organism; F11.20 Opioid dependence, uncomplicated; M79.7 Fibromyalgia; J45.909 Unspecified asthma, uncomplicated; Z87.891 Personal history of nicotine dependence; R55 Syncope and collapse; G89.4 Chronic pain syndrome

== ENCOUNTER 2017-02-15 00:36 | Day surgery (SDC) | payer MEDICARE ==
[~2017-02-15 00:36] MED LIST: AGM875T; DIPH25CA6 PO; FLUO20CA25 PO; HYDR-3740 PO; MTH10T PO; OMEP20CA11 PO; POLY17PO6 PO
[2017-02-15] MEDS ORDERED: Sodium Chloride LOK Flush 10 mL Syringe IV PRN (06:00)
[2017-02-15] MEDS ORDERED: 0.9% Sodium Chloride 1,000 ML IV SCH (06:00)
[2017-02-15] MEDS ORDERED: fentaNYL-PF 50 mCg/mL 2 mL Inj IVPUSH PRN (06:00)
[2017-02-15] MEDS ORDERED: PRE20 PO (10:21)
[2017-02-15] MEDS ORDERED: AGM875T ORAL (10:21)
[2017-02-15] MEDS ORDERED: ALBU8.5H2 INHALATION (10:21)
[2017-02-15] MEDS ORDERED: WALK1EAC55 MC (10:23)
== END 2017-02-15 23:59 | disposition home or self-care (01) ==
LOC: END 00:36
PROVIDERS: ATTEND Internal Medicine Gastroenterology
DX: Z12.11 Encounter for screening for malignant neoplasm of colon (principal); K21.9 Gastro-esophageal reflux disease without esophagitis; Z53.8 Procedure and treatment not carried out for other reasons

== ENCOUNTER 2017-03-02 13:31 | Emergency (ER) | payer MEDICARE ==
[~2017-03-02] VITALS: Ht 152.4 cm; Wt 51.8 kg
[~2017-03-02 13:31] MED LIST changes: -AGM875T; +AGM875T ORAL; +ALBU8.5H2 INHALATION; +PRE20 PO; +WALK1EAC55 MC
[2017-03-02 13:35] VITALS: BP 144/92; PULSE 99; RESP 20; O2SAT 98
--- NOTE | 2017-03-02 15:07 | ED.REPORT ---
HPI-Headache Date of Service Mar 02, 2017 ED Provider: Rupesh Paz MD Pt is a 61 y/o female w/ a hx of recent pneumonia and sepsis presenting to the ED c/o KENNEY and speech changes onset 2 weeks ago. The patient fell at her PCP's office on February 11 and hit her head. She was brought to [facility] ED and admitted due to sepsis and pneumonia. For the past 2 weeks she has been experiencing a piercing headache which began over her right pentecostalism and has now moved to her left pentecostalism the past 2 days as well as expressive aphasia with slurred speech and word-finding difficulties, and dizziness. Pt denies weakness, numbness, tingling, vision change. She has no history of stroke and is not anticoagulated. Nursing Notes Stated Complaint: HEADACHE,SLURRED SPEECH Chief Complaint: Neuro Symptoms/ Deficits Nursing Notes Reviewed: Yes Allergies: Coded Allergies: NSAIDS (Non-Steroidal Anti-Inflamma (Verified Allergy, Severe, 02/11/17) Scheduled Albuterol HFA (Proair HFA) 8.5 Gm Hfa.aer.ad 2 PUFFS INHALATION Q4H Amoxicillin/Clav K 875-125 mg (Amoxicillin/Clav K 875-125 mg) 875 Mg Tab 1 TAB ORAL BID Fluoxetine (Fluoxetine) 20 Mg Capsule 60 MG PO DAILY Methadone (Methadone) 10 Mg Tab 20 MG PO TID Omeprazole (Omeprazole) 20 Mg Capsule.dr 40 MG PO DAILY Polyethylene Glycol 3350 (Miralax) 17 Gm Powd.pack 17 GM PO DAILY Prednisone (PredniSONE) 20 Mg Tablet 40 MG PO DAILY Scheduled PRN Hydrocodone-Acetaminophen 10-325 mg (Hydrocodone-Acetaminophen 10-325 mg) 1 Each Tablet 1-2 TABLET PO PRN For Pain diphenhydrAMINE HCl (Benadryl) 25 Mg Capsule 25 MG PO DAILY PRN PRN For Congestion General Time Seen by MD: 15:07 Chief Complaint Headache Hx Obtained From: Patient Arrived By: Walk-in Sudden in Onset?: No Onset Occurred: More than a week ago... (2 weeks) Symptom Duration: Since onset Location: : Temporal left: Temporal right Quality: Painful Severity: Current: Moderate Severity: Maximum: Moderate Recent Healthcare: Recent doctor visit, Recent hospitalization Past Medical History Past Medical History Recent admit for pneumonia with sepsis January 2017 Anxiety Depression Fibromyalgia IBS URI GERD Past Surgical History Basal cell carcinoma Melanoma Reports: Hysterectomy Smoking History Former Smoker Social History Alcohol Use: Denies alcohol use Drug Use: Denies drug use Ambulatory Status Independent Review of Systems Neurologic: Reports: Dizziness, Headache, Lightheaded, Slurred speech, Denies: Focal weakness, Numbness, Vision change, Weakness Complete sys rev & neg: except as marked. Physical Exam Initial Vital Signs Vital Signs (First) Date Time Temp Pulse Resp B/P Pulse Ox O2 Delivery O2 Flow Rate FiO2 03/02/17 13:35 37.1 99 20 144/92 98 Room Air Initial VS: Reviewed, Vital signs normal ENT: Mucous membranes moist, Conjunctiva normal, No scleral icterus Respiratory: Breath sounds normal, Clear to auscultation, No respiratory distress Cardiovascular: Regular rate & rhythm, Heart sounds normal, Intact distal pulses Abdomen / GI: Soft, Non-tender Extremities: Vascular intact, Neuro intact, No swelling Skin: Warm, Dry, No cyanosis Psychiatric: Mood/affect normal, Behavior normal, Normal thought content General/Constitutional: Awake, Alert, No acute distress, Cooperative, Not toxic appearing Head / Eyes: Atraumatic, Normocephalic, PERRL Neck: Atraumatic, Supple, No meningismus, Full range of motion Neurologic: Oriented X3, Speech NL, No motor deficits, No sensory deficits, CN II - XII intact, Cerebellar NL, Memory NL Interpretation & Diagnostics Interpretation & Diagnostics: MRI head w/out contrast: IMPRESSION: No stroke or mass found, no hemorrhage identified. Chronic sphenoid sinusitis, right greater than left. Dictated by: Bi Dominguez M.D. on 03/02/2017 at 16:24 Approved by: Bi Dominguez M.D. on 03/02/2017 at 16:26 CT Head Interpretation IMPRESSION: No brain parenchymal abnormality seen, no intracranial hemorrhage or mass identified. Subtotal opacification of the sphenoid sinus, likely chronic by appearance. Dictated by: Bi Dominguez M.D. on 03/02/2017 at 15:11 Approved by: Bi Dominguez M.D. on 03/02/2017 at 15:12 Study: Head CT no contrast Interpretation / Wet Read by: Interpret - Radiologist Re-Eval/Medical Decision Med Decision/Clinical Course 61-year-old female with head trauma 2 weeks ago presenting with headache 2 week and she also feels as if her speech is slurred. It is not slurred on examination. She has no focal neurological deficits. A CT scan and MRI brain were performed but no acute pathology no evidence of stroke. She most likely has a concussion. She will follow up with primary doctor. Concussion precautions given. Return precautions given. Re-Evaluation/Progress #1: Time of Eval: 15:29 Re-Evaluation/Progress Note: Pt agrees with plan for MRI Re-Evaluation/Progress #2: Time of Eval: 17:28 Re-Evaluation/Progress Note: Pt rechecked. Discussed MRI results. Informed pt of plan for discharge. Pt understands and agrees with plan for discharge. F/U instructions and RTER warnings given. All questions addressed. Counseled Regarding: Diagnosis, Need for follow-up, When/why to return to ED Discharge & Departure Impression: Primary Impression: Concussion Encounter type: initial encounter Loss of consciousness presence/duration: without LOC Qualified Code: S06.0X0A - Concussion without loss of consciousness, initial encounter Disposition: Home Discharge Condition All VS Reviewed: Yes Condition: Stable Patient Instructions: Concussion (ED) Additional Instructions: The CT and MRI of your brain were both normal. There is no sign of stroke or bleeding in the brain. I suspect the cause of your symptoms is a concussion. Concussions can last varying amounts of time and have a wide range of symptoms depending on many factors. Follow-up with your primary care doctor in 2-3 days for a recheck. A neurologist consultation may be considered at that time. Return to the emergency department if you experience worsening or change in your headache, worsening of you speech, vision changes, vomiting, fever, neck pain or stiffness, numbness/weakness/tingling in your arms or legs, trouble swallowing, dizziness, lightheadedness, or for other concerning symptoms. Referrals: Angeles Camara (PCP) Scribe Attestation Portions of this note were transcribed by Bubba Astorga. I, Dr. Paz personally performed the history, physical exam and medical decision-making; I reviewed and confirmed the accuracy of the information in the transcribed note. copies to: Angeles Camara Ben M MD Mar 02, 2017 15:07 BUBBA ASTORGA Mar 02, 2017 15:20
--- NOTE | 2017-03-02 15:14 | DRSVH ---
PROCEDURE: CT BRAIN WITHOUT CONTRAST ([id number]) INDICATIONS: KENNEY/Recent Fall TECHNIQUE: Noncontrast 4.5 mm thick angled axial sections acquired from the foramen magnum to the vertex, with c oronal reformats. COMPARISON: None. FINDINGS: Image quality: Excellent. CSF spaces: Basal cisterns are patent. No extra-axial fluid collections. Ventricles are normal in size and shape. Brain: No midline shift. No intracranial masses or hemorrhage. Garcia-white matter interface is norm al. Skull and face: Calvarium and visualized facial bones are intact, without suspicious lesions. Sinuses: Visualized sinuses and mastoids are clear except for subtotal opacification of the sphenoid sinus. IMPRESSION: No brain parenchymal abnormality seen, no intracranial hemorrhage or mass identified. S ubtotal opacification of the sphenoid sinus, likely chronic by appearance. Dictated by: Bi Dominguez M.D. on 03/02/2017 at 15:11 Approved by: Bi Dominguez M.D. on 03/02/2017 at 15:12
[2017-03-02 15:20] VITALS: BP 111/55; PULSE 97; RESP 28; O2SAT 97
--- NOTE | 2017-03-02 16:27 | DRSVH ---
PROCEDURE: MRI BRAIN WITHOUT CONTRAST ([id number]) INDICATIONS: dysarthria r/o cva TECHNIQUE: Noncontrast axial T1 spin echo, axial T2 fast spin echo, sagittal and axial FLAIR, coronal T2 fast sp in echo, axial gradient echo, axial diffusion and ADC through the brain. COMPARISON: [facility], CT, CT BRAIN WO CON, 02/11/2017, 17:34. [facility], CT, CT ANGIO CHEST PE, 02/11/2017, 19:51. [facility], CT, CT BRAIN WO CON, 03/02/2017, 14: 42. FINDINGS: Image quality: Excellent. CSF Spaces: Basal cisterns are patent. No extra-axial fluid collections. Ventricles are normal in size and shape. Brain: No intracranial masses or hemorrhage. Garcia/white matter interface is normal. Brainstem appe ars normal. Diffusion-weighted images demonstrate no acute ischemic insult. No chronic ischemic ins ults. Normal intravascular flow voids are present. Skull and face: Calvarium has normal marrow signal. Orbits appear normal. Sinuses: Sinuses and mastoids are clear except for relatively prominent opacification of the midline and right half of the sphenoid sinus, with a small degree of involvement on the left, but without ex tension of inflammation into adjacent structures. IMPRESSION: No stroke or mass found, no hemorrhage identified. Chronic sphenoid sinusitis, right gr eater than left. Dictated by: Bi Dominguez M.D. on 03/02/2017 at 16:24 Approved by: Bi Dominguez M.D. on 03/02/2017 at 16:26
[2017-03-02 17:34] VITALS: BP 120/65; PULSE 50; RESP 16; O2SAT 96
[2017-03-02 17:45] VITALS: BP 120/65; PULSE 50; RESP 16; O2SAT 96
== END 2017-03-02 17:46 | disposition home or self-care (01) ==
LOC: SED 13:31
DX: S06.0X0D Concussion without loss of consciousness, subsequent encounter (principal); W01.198D Fall on same level from slipping, tripping and stumbling with subsequent striking against other object, subsequent encounter; Y93.9 Activity, unspecified; Y92.531 Health care provider office as the place of occurrence of the external cause; Y99.8 Other external cause status; K21.9 Gastro-esophageal reflux disease without esophagitis; Z90.710 Acquired absence of both cervix and uterus; Z87.891 Personal history of nicotine dependence